=== PATIENT | male | born 1995 | race Caucasian/White ===

== ENCOUNTER 2017-05-12 15:16 | Emergency (ER) | payer OTHER ==
[2017-05-12] MEDS ORDERED: ONDANSETRON DISINTEGRATING 4 MG TAB PO ONE ×2 (15:22→17:12)
[2017-05-12] MEDS ORDERED: ONDANSETRON 4 MG/2 ML VIAL ONE (15:32)
[2017-05-12] MEDS ORDERED: NS 1,000 ML IV ONE ×3 (15:34→15:37)
[2017-05-12] MEDS ORDERED: ONDANSETRON 4 MG/2 ML VIAL IVP ONE (15:34)
--- NOTE | 2017-05-12 15:34 | EDPHY ---
H & P Stated Complaint: n/v etoh over use last night HPI/ROS: HPI CHIEF COMPLAINT: Nausea, vomiting HISTORY OF PRESENT ILLNESS: This patient 22-year-old male, otherwise healthy no significant medical history he presents emergency room by private vehicle nausea vomiting. "Stomach upset ". Patient reports that he drank a large amount of alcohol last night. Patient states he did 10-12 shots and beer. He now cannot hold anything down. He has been trying to drink water and saltine crackers but vomits them up. He denies any significant abdominal pain but does have some upper epigastric GI upset. No diarrhea. No chest pain or shortness of breath. Past Medical History: Denies any medical history Past Surgical History: Denies significant surgical history Social History: Denies daily use drugs alcohol tobacco. Binge drink last night. Family History: Noncontributory ROS REVIEW OF SYSTEMS: A comprehensive 10 point review of systems is otherwise negative aside from elements mentioned in the history of present illness. Exam Constitutional appears well nontoxic, triage nursing summary reviewed, vital signs reviewed, awake/alert. Eyes normal conjunctivae and sclera, EOMI, PERRLA. HENT normal inspection, atraumatic, moist mucus membranes, no epistaxis, neck supple/ no meningismus, no raccoon eyes. Respiratory clear to auscultation bilaterally, normal breath sounds, no respiratory distress, no wheezing. Cardiovascular rate normal, regular rhythm, no murmur, no edema, distal pulses normal. Gastrointestinal soft, non-tender, no rebound, no guarding, normal bowel sounds, no distension, no pulsatile mass. Genitourinary no CVA tenderness. Musculoskeletal no midline vertebral tenderness, full range of motion, no calf swelling, no tenderness of extremities, no meningismus, good pulses, neurovascularly intact. Skin pink, warm, & dry, no rash, skin atraumatic. Neurologic awake, alert and oriented x 3, AAOx3, moves all 4 extremities equally, motor intact, sensory intact, CN II-XII intact, normal cerebellar, normal vision, normal speech. Psychiatric normal mood/affect. Heme/Lymph/Immune no lymphadenopathy. Differential Diagnosis: Includes but is not limited to in a particular order dehydration, electrolyte disturbance, alcohol-induced gastritis, alcohol- induced pancreatitis, Medical Decision Making: Plan for this patient IV establishment IV fluid bolus 2 L normal saline, IV Zofran for nausea vomiting, IV Protonix for stomach acid suppression. Check lipase to make sure no alcohol-induced pancreatitis Re-evaluation: 1658: Re-evaluation at this time. Patient is resting. No vomiting. Re- examination of his abdomen is soft nontender no guarding or peritoneal signs. He did take ice chips well here without vomiting. He p.o. challenge with clear liquids well. He would like to go home. Prescription given for limited amount of Zofran. Additionally understands return immediately to the emergency room if develops worsening abdominal pain fever vomiting. His blood work has been reviewed EKGs concentrated consistent with dehydration however he does have a leukocytosis most likely reactive to vomiting. He did receive 2 L of normal saline here in the emergency room. His white count has trended down. I do not feel that he needs any emergent imaging at this time. Most likely nausea vomiting from acute alcohol intoxication gastritis pain no evidence pancreatitis. Strict return precautions given. He understands. Source: Patient - Personal History Current Tetanus/Diphtheria Vaccine: Yes - Medical/Surgical History Hx Asthma: No Hx Chronic Respiratory Disease: No Hx Diabetes: No Hx Cardiac Disease: No Hx Renal Disease: No Hx Cirrhosis: No Hx Alcoholism: No Hx HIV/AIDS: No Hx Splenectomy or Spleen Trauma: No Other PMH: denies - Social History Smoking Status: Never smoked Constitutional: Initial Vital Signs Temperature (C) 36.7 C 05/12/17 15:20 Heart Rate 82 05/12/17 15:20 Respiratory Rate 20 05/12/17 15:20 Blood Pressure 106/77 05/12/17 15:20 O2 Sat (%) 99 05/12/17 15:20 O2 Delivery Mode Room Air Allergies/Adverse Reactions: No Known Allergies Allergy (Unverified 05/12/17 15:19) Home Medications: Medication Instructions Recorded Ondansetron Odt [Zofran Odt 4 mg 4 mg PO Q4 PRN #10 tab 05/12/17 (RX)] Medical Decision Making - Data Points Laboratory Results: Laboratory Results 05/12/17 16:31 05/12/17 15:39 05/12/17 05/12/17 05/12/17 16:31 15:39 15:39 WBC 21.14 10^3/uL H 10^3/uL 24.27 10^3/uL H 10^3/uL (3.80-9.50) (3.80-9.50) RBC 5.22 10^6/uL 10^6/uL 5.85 10^6/uL 10^6/uL (4.40-6.38) (4.40-6.38) Hgb 14.8 g/dL g/dL 16.4 g/dL g/dL (13.7-17.5) (13.7-17.5) Hct 42.3 % % 47.3 % % (40.0-51.0) (40.0-51.0) MCV 81.0 fL L fL 80.9 fL L fL (81.5-99.8) (81.5-99.8) MCH 28.4 pg pg 28.0 pg pg (27.9-34.1) (27.9-34.1) MCHC 35.0 g/dL g/dL 34.7 g/dL g/dL (32.4-36.7) (32.4-36.7) RDW 13.9 % % 14.2 % % (11.5-15.2) (11.5-15.2) Plt Count 355 10^3/uL D 10^3/uL 429 10^3/uL H 10^3/uL (150-400) (150-400) MPV 9.5 fL fL 9.5 fL fL (8.7-11.7) (8.7-11.7) Neut % (Auto) 88.8 % H % 84.9 % H % (39.3-74.2) (39.3-74.2) Lymph % (Auto) 4.8 % L % 8.5 % L % (15.0-45.0) (15.0-45.0) Bland % (Auto) 5.4 % % 5.5 % % (4.5-13.0) (4.5-13.0) Eos % (Auto) 0.0 % L % 0.0 % L % (0.6-7.6) (0.6-7.6) Baso % (Auto) 0.2 % L % 0.2 % L % (0.3-1.7) (0.3-1.7) Nucleat RBC Rel Count 0.0 % % 0.0 % % (0.0-0.2) (0.0-0.2) Absolute Neuts (auto) 18.79 10^3/uL H 10^3/uL 20.60 10^3/uL H 10^3/uL (1.70-6.50) (1.70-6.50) Absolute Lymphs (auto) 1.01 10^3/uL 10^3/uL 2.07 10^3/uL 10^3/uL (1.00-3.00) (1.00-3.00) Absolute Monos (auto) 1.14 10^3/uL H 10^3/uL 1.34 10^3/uL H 10^3/uL (0.30-0.80) (0.30-0.80) Absolute Eos (auto) 0.00 10^3/uL L 10^3/uL 0.01 10^3/uL L 10^3/uL (0.03-0.40) (0.03-0.40) Absolute Basos (auto) 0.04 10^3/uL 10^3/uL 0.04 10^3/uL 10^3/uL (0.02-0.10) (0.02-0.10) Absolute Nucleated RBC 0.00 10^3/uL 10^3/uL 0.00 10^3/uL 10^3/uL (0-0.01) (0-0.01) Immature Gran % 0.8 % % 0.9 % % (0.0-1.1) (0.0-1.1) Immature Gran # 0.16 10^3/uL H 10^3/uL 0.21 10^3/uL H 10^3/uL (0.00-0.10) (0.00-0.10) Sodium 143 mEq/L mEq/L (134-144) Potassium 4.0 mEq/L mEq/L (3.5-5.2) Chloride 101 mEq/L mEq/L (97-110) Carbon Dioxide 19 mEq/l L mEq/l (22-31) Anion Gap 23 mEq/L H mEq/L (8-16) BUN 9 mg/dL mg/dL (7-23) Creatinine 0.8 mg/dL mg/dL (0.7-1.3) Estimated GFR > 60 Glucose 116 mg/dL H mg/dL (70-100) Calcium 10.7 mg/dL H mg/dL (8.5-10.4) Phosphorus 2.4 mg/dL L mg/dL (2.5-4.5) Total Bilirubin 1.2 mg/dL mg/dL (0.1-1.4) Conjugated Bilirubin 0.4 mg/dL mg/dL (0.0-0.5) Unconjugated Bilirubin 0.8 mg/dL mg/dL (0.0-1.1) AST 26 IU/L IU/L (17-59) ALT 31 IU/L IU/L (21-72) Alkaline Phosphatase 89 IU/L IU/L (38-126) Total Protein 8.4 g/dL H g/dL (6.3-8.2) Albumin 5.5 g/dL H g/dL (3.5-5.0) Lipase 92 IU/L IU/L (23-300) Ethyl Alcohol 05/12/17 15:36 WBC RBC Hgb Hct MCV MCH MCHC RDW Plt Count MPV Neut % (Auto) Lymph % (Auto) Bland % (Auto) Eos % (Auto) Baso % (Auto) Nucleat RBC Rel Count Absolute Neuts (auto) Absolute Lymphs (auto) Absolute Monos (auto) Absolute Eos (auto) Absolute Basos (auto) Absolute Nucleated RBC Immature Gran % Immature Gran # Sodium Potassium Chloride Carbon Dioxide Anion Gap BUN Creatinine Estimated GFR Glucose Calcium Phosphorus Total Bilirubin Conjugated Bilirubin Unconjugated Bilirubin AST ALT Alkaline Phosphatase Total Protein Albumin Lipase Ethyl Alcohol < 10 mg/dL mg/dL (0-10) Medications Given: Discontinued Medications Sodium Chloride (Ns) 1,000 mls @ 0 mls/hr IV ONCE ONE PRN Reason: Wide Open Stop: 05/12/17 15:35 Last Admin: 05/12/17 15:35 Dose: 1,000 mls Sodium Chloride (Ns) 1,000 mls @ 0 mls/hr IV EDNOW ONE; Wide Open PRN Reason: Protocol Stop: 05/12/17 15:38 Last Admin: 05/12/17 15:48 Dose: 1,000 mls Sodium Chloride (Ns) 1,000 mls @ 0 mls/hr IV EDNOW ONE; Wide Open PRN Reason: Protocol Stop: 05/12/17 15:38 Last Admin: 05/12/17 15:50 Dose: 1,000 mls Ondansetron HCl (Zofran Odt) 4 mg PO EDNOW ONE Stop: 05/12/17 15:23 Last Admin: 05/12/17 15:24 Dose: 4 mg Ondansetron HCl (Zofran) 4 mg IVP EDNOW ONE Stop: 05/12/17 15:35 Last Admin: 05/12/17 15:35 Dose: 4 mg Pantoprazole Sodium (Protonix) 40 mg IVP EDNOW ONE Stop: 05/12/17 15:42 Last Admin: 05/12/17 15:53 Dose: 40 mg Departure - Departure Disposition: Home, Routine, Self-Care Clinical Impression: Dehydration Vomiting Qualifiers: Vomiting type: unspecified Vomiting Intractability: non-intractable Nausea presence: with nausea Qualified Code(s): R11.2 - Nausea with vomiting, unspecified Condition: Good Instructions: Acute Nausea and Vomiting (ED) Additional Instructions: 1.Refrain from eating or drinking spicy fatty greasy foods for the next 48 hours. [place] diet. 2. Return emergency room if develops worsening symptoms includes vomiting, pain fever. 3. No alcohol for 3 weeks. Referrals: NONE *PRIMARY CARE P,. [Primary Care Provider] - As per Instructions Prescriptions: Ondansetron Odt [Zofran Odt 4 mg (RX)] 4 mg PO Q4 PRN #10 tab PRN Reason: for nausea
[2017-05-12] MEDS ORDERED: PANTOPRAZOLE SODIUM 40 MG VIAL IVP ONE (15:41)
[2017-05-12 15:50] LABS: % IMMATURE GRANULYOCYTES 0.9 % (0.0-1.1); ABSOLUTE IMMATURE GRANULOCYTES 0.21 10^3/uL (0.00-0.10); ADD DIFF? NO; ADD MORPH? NO; ADD SCAN? NO; ATYPICAL LYMPHOCYTE FLAG 0 (0-99); FRAGMENT RBC FLAG 0 (0-99); HEMATOCRIT 47.3 % (40.0-51.0); HEMOGLOBIN 16.4 g/dL (13.7-17.5); LEFT SHIFT FLG 0 (0-99); LIPEMIA HEMOLYSIS FLAG 90 (0-99); MEAN CELL HEMOGLOBIN CONCENTR. 34.7 g/dL (32.4-36.7); MEAN CELL VOLUME 80.9 fL (81.5-99.8); MEAN PLATELET VOLUME 9.5 fL (8.7-11.7); PLATELET CLUMPS FLAG 10 (0-99); PLATELET COUNT 429 10^3/uL (150-400); RED BLOOD CELL COUNT 5.85 10^6/uL (4.40-6.38); RED CELL DISTRIBUTION WIDTH 14.2 % (11.5-15.2)
[2017-05-12 16:01] LABS: ALANINE AMINOTRANSFERASE 31 IU/L (21-72); ALBUMIN 5.5 g/dL (3.5-5.0); ALKALINE PHOSPHATASE 89 IU/L (38-126); ANION GAP 23 mEq/L (8-16); ASPARTATE AMINOTRANSFERASE 26 IU/L (17-59); BILIRUBIN,TOTAL 1.2 mg/dL (0.1-1.4); BILIRUBIN-CONJUGATED 0.4 mg/dL (0.0-0.5); BILIRUBIN-UNCONJUGATED 0.8 mg/dL (0.0-1.1); CALCIUM 10.7 mg/dL (8.5-10.4); CARBON DIOXIDE 19 mEq/l (22-31); CHLORIDE 101 mEq/L (97-110); CREATININE 0.8 mg/dL (0.7-1.3); GLOMERULAR FILTRATION RATE > 60; GLUCOSE 116 mg/dL (70-100); SODIUM 143 mEq/L (134-144); TOTAL PROTEIN 8.4 g/dL (6.3-8.2)
[2017-05-12 16:12] LABS: ETHANOL SERUM < 10 mg/dL (0-10)
[2017-05-12 16:42] LABS: % IMMATURE GRANULYOCYTES 0.8 % (0.0-1.1); ABSOLUTE IMMATURE GRANULOCYTES 0.16 10^3/uL (0.00-0.10); ADD DIFF? NO; ADD MORPH? NO; ADD SCAN? NO; ATYPICAL LYMPHOCYTE FLAG 0 (0-99); FRAGMENT RBC FLAG 0 (0-99); HEMATOCRIT 42.3 % (40.0-51.0); HEMOGLOBIN 14.8 g/dL (13.7-17.5); LEFT SHIFT FLG 0 (0-99); LIPEMIA HEMOLYSIS FLAG 90 (0-99); MEAN CELL HEMOGLOBIN 28.4 pg (27.9-34.1); MEAN PLATELET VOLUME 9.5 fL (8.7-11.7); PLATELET CLUMPS FLAG 0 (0-99); PLATELET COUNT 355 10^3/uL (150-400); RED BLOOD CELL COUNT 5.22 10^6/uL (4.40-6.38); RED CELL DISTRIBUTION WIDTH 13.9 % (11.5-15.2)
[2017-05-12 17:38] VITALS: BP 120/59; PULSE 96; RESP 16; O2SAT 96
[2017-05-12 17:46] VITALS: TEMP 98.2
== END 2017-05-12 17:46 | disposition home or self-care (01) ==
DX: R11.2 Nausea with vomiting, unspecified (principal); E86.9 Volume depletion, unspecified; E86.0 Dehydration
CPT/HCPCS: 96374; G0480; J2405